=== PATIENT | male | born 1995 | race Caucasian/White ===

== ENCOUNTER 2019-06-23 11:46 | Emergency (ER) | payer OTHER ==
[~2019-06-23] VITALS: Ht 177.8 cm; Wt 90.9 kg
[2019-06-23] MEDS ORDERED: CLINDAMYCIN 150 MG CAP PO ONE (13:45)
[2019-06-23] MEDS ORDERED: dexameTHASONE 20 MG/5 ML VIAL (J1100) IM ONE (13:45)
[2019-06-23] MEDS ORDERED: ACETAMINOPHEN 325 MG TAB PO ONE (13:45)
[2019-06-23] MEDS ORDERED: MEDR4PAK PO (14:13)
[2019-06-23] MEDS ORDERED: LIDO1SOL8 PO (14:13)
[2019-06-23] MEDS ORDERED: CLEO300C2 PO (14:13)
[2019-06-23] MEDS ORDERED: LIDOCAINE VISCOUS 2% SOLN 15ML UDC SS ONE (14:15)
[2019-06-23 14:26] VITALS: BP 142/85
== END 2019-06-23 14:42 | disposition home or self-care (01) ==
LOC: M ED 11:46
DX: J02.0 Streptococcal pharyngitis (principal)
CPT/HCPCS: 87880; 96372; 99284; J1100